=== PATIENT | male | born 1990 | race Caucasian/White ===

== ENCOUNTER 2020-01-16 06:56 | Outpatient (NON) | payer OTHER, SELFPAY ==
[2020-01-16 16:38] LABS: SARS-CoV-2 RNA PCR Negative
== END 2020-01-16 06:57 ==
PROVIDERS: PCP Family Medicine; Visit Provider Family Medicine
DX: Z20.828 Contact with and (suspected) exposure to other viral communicable diseases (principal); R05 Cough
CPT/HCPCS: 87635; C9803; U0003

== ENCOUNTER 2020-03-26 10:36 | Outpatient (NON) | payer OTHER, SELFPAY ==
[2020-03-26 22:01] LABS: SARS-CoV-2 RNA PCR Negative
== END 2020-03-26 10:37 ==
PROVIDERS: Nurse Practitioner Family; PCP Family Medicine; Visit Provider Family Medicine
DX: Z20.828 Contact with and (suspected) exposure to other viral communicable diseases (principal); R43.2 Parageusia
CPT/HCPCS: 87635; C9803; U0003

== ENCOUNTER 2020-11-05 04:37 | Emergency (ER) | payer OTHER, SELFPAY ==
[2020-11-05 04:45] VITALS: BP 141/90; PULSE 76; RESP 20; TEMP 36.6; O2SAT 99
--- NOTE | 2020-11-05 05:18 | ED.HA ---
HPI - Headache General Chief Complaint: Headache Stated Complaint: headache, neck pain Time Seen by Provider: 11/05/20 05:08 History of Present Illness HPI Narrative: Posterior neck pain radiating into the back of his head since yesterday. Worse with head movement. Associated with nausea and light sensitivity. He has had similar pain in the past. No weakness, numbness, fever. Related Data Home Medications Medication Instructions Recorded Confirmed insulin lispro 200 unit/mL (3 mL) 10 unit SUB-Q TID ml 10/30/19 11/12/20 subcutaneous pen Allergies Allergy/AdvReac Type Severity Reaction Status Date / Time Penicillins Allergy Unknown Unknown Verified 11/12/20 16:38 Review of Systems Review of Systems: All systems reviewed & are unremarkable except as noted in HPI and below Constitutional: Constitutional: Denies chills, Denies fever(s) and Denies weakness Eyes: Eyes: Reports photophobia ENT: Denies sore throat Cardiovascular: Cardiovascular: Denies chest pain Respiratory: Respiratory: Denies dyspnea Gastrointestinal: Gastrointestinal: Reports nausea Genitourinary: Genitourinary: Reports no additional male genitourinary complaints Neurologic: Denies numbness and Denies weakness Psychiatric: Psychiatric: Reports anxiety PMFSH Past Medical History Medical History Depression Diabetes mellitus type 1.5 Diabetes mellitus with hyperglycemia Elevated CO2 level Elevated WBC count Low serum sodium Mixed hyperlipidemia Oral thrush Family History Family History Mother Hypertension Social History Social History (Updated 11/12/20 @ 16:40 by Taylor Ruggiero MA) Smoking status: Never smoker Second hand tobacco smoke exposure: No Alcohol intake: never Alcohol use details: social Substance use: former Substance use type: does not use and marijuana Living arrangements: other Occupation/Education: occupation Gender identity (if verbalized by the patient): Male Exam Const: General: healthy appearing, no acute distress and alert Orientation/consciousness: patient oriented x3 HENMT: Head: normal to inspection Neck: Neck: normal visual inspection Resp: Effort & Inspection: normal respiratory effort Auscultation: clear to auscultation bilaterally, no rales, no rhonchi and no wheezes Cardio: Jugular venous distension: no JVD Rate: regular rate Rhythm: regular rhythm Heart sounds: no murmurs Back/Spine/Pelvis: Cervical Spine: cervical muscular tenderness and No Cervical spine tenderness Skin: General skin exam: normal color Neuro: General: patient oriented x3 and moves all extremities Speech: normal speech Extrem: General: normal to inspection Psych: Appearance: well kempt Affect: Anxious affect present Course Vital Signs Vital signs: Vital Signs Temperature 36.6 C 11/05/20 04:45 Pulse Rate 76 11/05/20 04:45 Respiratory Rate 20 11/05/20 04:45 Blood Pressure 141/90 H 11/05/20 04:45 Pulse Oximetry 99 11/05/20 04:45 Temperature 36.6 C 11/05/20 04:45 Pulse Rate 87 11/05/20 07:46 Respiratory Rate 18 11/05/20 07:46 Blood Pressure 131/98 H 11/05/20 07:46 Pulse Oximetry 97 11/05/20 07:46 MDM - Headache MDM Narrative Medical decision making narrative: headache significantly improved with treatment. neck is stiff, but no other additional symptoms to suggest meningitis. Appears very anxious, likely contributing. Differential Diagnosis Differential diagnosis: Likely tension headache and other (torticolis, strain, other ) Medical Records Attestation: I reviewed the patient's medical records. Discharge Plan Discharge Clinical Impression: Neck pain Patient Disposition: Home, Self-Care Condition: Stable Instructions: Acute Neck Pain (ED) Prescriptions: No Action Humalog KwikPen Insulin 200 unit/mL (3 mL) in
--- NOTE | 2020-11-05 05:28 | PC.NURSE ---
Decadron out of stock in both med pyxis. Called pharmacy, spoke to Derek and he stated he will send medication to ED.
[2020-11-05] MEDS: diazePAM INJ (*CRX) 10 MG/2 ML SYRINGE 5 MG IM (05:38)
[2020-11-05 05:43] VITALS: BP 138/89; PULSE 80; RESP 22; O2SAT 97
[2020-11-05] MEDS: KETOROLAC (*BKC) 60 MG/2 ML VIAL IM (06:43)
[2020-11-05 07:01] VITALS: BP 125/78; PULSE 81; RESP 16; O2SAT 96
[2020-11-05 07:46] VITALS: BP 131/98; PULSE 87; RESP 18; O2SAT 97
== END 2020-11-05 07:48 | disposition home or self-care (01) ==
PROVIDERS: Emergency Provider Emergency Medicine; PCP Family Medicine
DX: M54.2 Cervicalgia (principal); E11.9 Type 2 diabetes mellitus without complications; E78.2 Mixed hyperlipidemia; Z79.4 Long term (current) use of insulin
CPT/HCPCS: 96372; 99284; J1100; J1885; J3360

== ENCOUNTER 2020-11-27 14:29 | Outpatient (CLI) | payer OTHER, SELFPAY ==
--- NOTE | ~2020-11-27 | XR_ITS ---
XR_[id number] DATE: 11/27/2020 14:46 INDICATION: Neck pain TECHNIQUE: AP, open-mouth, lateral views COMPARISON: None FINDINGS: There is straightening of the cervical spine which may be due to muscle spasm. C1 and C2 are normally aligned and the odontoid process is intact. No fracture or dislocation or lock ed facet or prevertebral soft tissue swelling. Cervical interspaces appear well preserved. IMPRESSION: Straightening; otherwise negative Reviewed, dictated and finalized at [facility]. Reviewed, dictated and finalized at [facility].
== END 2020-11-27 14:30 ==
PROVIDERS: PCP Family Medicine; Visit Provider Physician Assistant
DX: M54.2 Cervicalgia (principal)
CPT/HCPCS: 72040

== ENCOUNTER 2024-10-07 09:24 | Outpatient (CLI) | payer OTHER, SELFPAY ==
--- NOTE | ~2024-10-07 | US_ITS ---
Limited Abdominal Sonogram: Real-time sonographic imaging of the right upper quadrant was performed. Clinical History: Evaluate liver and gallbladder Findings: The liver appears echogenic, with no evidence of mass lesion or bile duct dilatation. Main portal vein demonstrates normal direction of flow. The gallbladder is well distended, and appears no rmal with no evidence of gallstone or wall thickening. The common bile duct measures 4 mm. The visua lized pancreas, aorta, and IVC are unremarkable. Impression: Diffuse fatty infiltration of the liver. Reviewed, dictated and finalized at [facility]. Impression: Diffuse fatty infiltration of the liver.
== END 2024-10-07 09:25 | disposition home or self-care (01) ==
LOC: MICIMG 09:24
PROVIDERS: PCP Family Medicine; Visit Provider Internal Medicine Endocrinology, Diabetes & Metabolism
DX: R17 Unspecified jaundice (principal)
CPT/HCPCS: 76705